=== PATIENT | male | born 1965 | race Caucasian/White ===

== ENCOUNTER 2025-03-03 14:46 | Emergency (ER) | payer MEDICARE ==
[~2025-03-03] VITALS: Ht 180.3 cm; Wt 136.3 kg
[2025-03-03 14:52] VITALS: TEMP 98
--- NOTE | 2025-03-03 14:56 | Physician Documentation ---
History of Present Illness Stated Complaint: ABD PAIN OK to notify your PCP?: Yes Source: patient Mode of Arrival: EMS Exam Limitations: no limitations HPI MSE: This is a very pleasant 60-year-old male that presents to the emergency department for evaluation of left upper quadrant pain x2 hours. Patient was brought in by ambulance today. Patient reports that he was diaphoretic and cool to the touch per EMS. Patient reports he had a similar episode to this last week he was seen at a local ER a does not recall which ER. Patient reports he was given a GI cocktail with improvement at that time. Patient denies chest pain shortness of breath dizziness 30 breathing nausea vomiting diarrhea at this time. Patient reports pain with palpation throughout his abdomen. Physical Exam Pulse Oximetry Reflects: adequate oxygenation General Appearance: alert, WD/WN, no apparent distress Gastrointestinal: normal palpation Gastrointestinal To inspection of the abdomen no obvious distention. The patient is nontender to palpation x4 quadrants. No rigidity, rebound or guarding x4 quadrants. No tenderness to blunt percussion over the liver spleen. Negative Timmons's sign. Negative McBurney's point tenderness. Negative CVA tenderness to blunt percussion bilaterally. Medical Decision Making Additional information obtaine: N/A Findings The GI workup was essentially negative. There was question of some patchy opacities in the left lower lobe of the lung of the left little pleural effusion of the chest x-ray however in his CT scan has been and pelvis these areas were imaged and interpreted as scarring and/or atelectasis. That has in the indicate an acute infectious disease process. The patient has not no respiratory symptoms. The patient has been essentially asymptomatic since arriving to the ER. We are going to send him home with a prescription for Prilosec and Bentyl. I instructed him to start a clear liquid supplement diet. Follow up with the primary care physician for recheck in the next one or two days and return to the ER for any worsening or concerning symptoms. Differential Dx:Considerations: Esophagitis, Gastritis/PUD, Gastroenteritis, Pancreatitis Departure Disposition: HOME / SELF CARE / HOMELESS Impression: Primary Impression: Abdominal pain Condition: Stable Discharge Instructions: Abdominal Pain (Nonspecific) Additional Instructions: Take the medications as prescribed. Start a clear liquid soft bland diet. Follow up with the your primary care physician in your area. Return to the ER for any worsening or concerning symptoms. Referrals: NO PRIMARY CARE PROVIDER (PCP) Prescriptions Dicyclomine HCl (Dicyclomine HCl) 20 Mg Tablet 1 TAB PO Q6H for irritable bowel symptoms, #20 TAB 0 Refills Prov: CHANTE PEREZ 03/03/25 Omeprazole (Omeprazole) 20 Mg Capsule.dr 1 CAP PO DAILY for 30 Days, #30 CAP 0 Refills Prov: CHANTE PEREZ 03/03/25 Signature Scribe Signature: No scribe Attestation: The note accurately reflects work and decisions made by me.Chante WANG 03/03/25 17:54 JIMBO NOLAND Mar 03, 2025 14:56 CHANTE PEREZ Mar 03, 2025 16:05
--- NOTE | 2025-03-03 15:07 | ELECTROCARDIOGRAPH REPORT ---
[facility] Test Date: 2025-03-03 Test Time: 15:02:09 Pat Name: JANETTE WILLINGHAM Department: EMERGENCY ROOM Room: Gender: M Data Processing Specialist: CARLITOS : 1965 Requested By: DEPARTMENT EMERGENCY Order Number: [id number] Reading MD: Dr. CHELLE Marquez Measurements Intervals Bogart Rate: 77 P: 69 IN: 211 QRS: 19 QRSD: 97 T: 35 QT: 391 QTc: 443 Interpretive Statements Sinus rhythm Prolonged IN interval Low voltage, precordial leads Electronically Signed On 03-05-2025 11:47:[address] CHELLE Marquez Please click the below link to view image of tracing.
[2025-03-03 15:33] LABS: MEAN PLATELET VOLUME 6.9 FL (7.4-10.4); RED CELL DISTRIBUTION WIDTH 14.1 % (11.5-14.5)
--- NOTE | 2025-03-03 15:46 | RADIOLOGY REPORT ---
CHEST RADIOGRAPH Indication: CP Technique: DI CHEST,SINGLE VIEW Comparison: None FINDINGS: The cardiac silhouette is unremarkable. The lungs demonstrate perihilar airspace opacities. Left basilar airspace opacities. The pulmonary vasculature is mildly prominent. Possible small left pleural. There is no pneumothorax. IMPRESSION: As above
[2025-03-03 15:51] LABS: PRO BRAIN NATRIURETIC PEPTIDE 30 PG/ML (0-125)
[2025-03-03 16:16] LABS: CREATININE 1.03 MG/DL (0.60-1.10); TOTAL CARBON DIOXIDE 30.9 MMOL/L (24-32); eCRCL 81 ML/MIN; eGFR 74 ML/MIN
[2025-03-03 16:30] VITALS: O2SAT 97
[2025-03-03 16:34] VITALS: RESP 16
--- NOTE | 2025-03-03 17:04 | RADIOLOGY REPORT ---
CLINICAL HISTORY: Left flank pain rule out stone TECHNIQUE: CT of the abdomen and pelvis was performed without IV contrast. This exam was performed according to our departmental dose optimization program. Up-to-date CT equipment and radiation dose reduction techniques are utilized as appropriate. CTDI 37 DLP 2013 COMPARISON: None FINDINGS: Abdomen/Pelvis: The spleen, pancreas, adrenal glands, left kidney, liver, bladder, and prostate gland are grossly unremarkable. There are layering small gallstones. Hypodense right renal lesion is incompletely characterized due to lack of IV contrast. The abdominal aorta is normal in course and caliber. There are no significant atherosclerotic calcifications. There is no free intraperitoneal air or fluid. There is no enlarged abdominal pelvic lymph node. There is no bowel wall thickening or dilatation. The appendix is normal. There is loix-sh-[id number] colonic diverticulosis. There is mild Mesenteric and soft tissue edema. Other: The imaged lower thorax demonstrates coronary artery calcifications. There are strands of bilateral lower lung atelectasis and/or scar. No acute osseous abnormality is evident. Impression: No acute noncontrast CT abnormality in the abdomen / pelvis. Colonic diverticulosis. Cholelithiasis. Coronary artery calcifications.
[2025-03-03 17:15] LABS: LEUKOCYTE ESTERASE ,URINE NEGATIVE (Neg); NITRITES, URINE NEGATIVE (Neg); OCCULT BLOOD,URINE NEGATIVE (Neg)
[2025-03-03 17:17] LABS: UA COLLECTION TYPE CLN CATCH MIDSTREAM
[2025-03-03 17:25] LABS: MUCUS STRANDS MODERATE /LPF (Neg); SQUAMOUS EPITHELIAL CELL,UR FEW /LPF (FEW)
[2025-03-03 17:26] LABS: FINE GRANULAR CAST 0-3 /LPF (NEGATIVE)
[2025-03-03] MEDS ORDERED: OMEP20CA16 PO (17:53)
[2025-03-03] MEDS ORDERED: DICY20TA17 PO (17:53)
[2025-03-03 18:13] VITALS: BP 140/83; PULSE 77
== END 2025-03-03 18:16 | disposition home or self-care (01) ==
LOC: ER 14:46
DX: R10.12 Left upper quadrant pain (principal); R06.02 Shortness of breath
CPT/HCPCS: 36415; 71045; 74176; 80053; 81001; 83690; 83880; 84484; 85025; 93005; 99285